=== PATIENT | female | born 2000 | race Caucasian/White ===

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

== ENCOUNTER 2023-07-24 01:51 | Emergency (ER) | payer BC, SELFPAY ==
--- NOTE | 2023-07-24 01:54 | ED.GENADUL_ITS ---
HPI General Mode of arrival: ambulatory . Date/Time Provider Initiated Documentation: 07/24/23 01:54 . Limitations to Documentation: no limitations . Information obtained by: patient . HPI Narrative: Patient presents to ED with complaint of headache now associated with vomiting. Patient reports headache started 2 days ago and was regular in nature. However, it has not gone away like they typically do. Headache has just become progressively worse. Today she has had nausea and vomiting. At this point she reports being unable to keep anything including water down. She denies any f ever, congestion, chest pain, shortness of breath, abdominal pain. She has a chronic smoker's cough which is unchanged and not any worse. Denies any neurologic complaints other than headache. Denies exposure to flu or COVID. Denies . Reports that she is generally healthy otherwise, only takes medication for her bipolar disorder. Related Data Home Medications Medication Instructions Recorded Confirmed hydroxyzine HCl 25 mg tablet 25 mg PO ONCE 07/24/23 07/24/23 melatonin 10 mg capsule 10 mg PO DAILY 07/24/23 07/24/23 olanzapine 20 mg tablet (Zyprexa) 20 mg PO DAILY 07/24/23 07/24/23 Allergies Allergy/AdvReac Type Severity Reaction Status Date / Time No Known Allergies Allergy Unverified 07/24/23 01:59 General KEITH: 3 Review of Systems Narrative: Per HPI PFSH All Active Problems (Updated 07/24/23 @ 03:04 by Kenji Tinoco MD) Vomiting (Acute) Headache (Acute) Medical History Bipolar II disorder Surgical History History of right knee surgery Social History Smoking/Tobacco Use Status: Current-Occasional Tobacco Type: cigarettes and e- cigarettes Smoking risk assessment performed?: Yes Alcohol Intake: current Alcohol Intake frequency: a few times a week Drug use: Occasionally Substance use type: marijuana Do you feel safe at home: Yes Do you feel safe in your relationship?: Yes Exam Narrative Exam Narrative: Const: WDWN female in NAD. HEENT: NC/AT. Normal facial exam. Eyes: Normal conjunctiva and sclera. PERRL and EOMI. Neck: Supple. Trachea midline. Lungs: Normal respiratory effort. Lungs are clear. Cor: RRR without murmur/gallop. Good radial pulses. GI: Soft. NT/ND. Neuro: A+O x 3. Normal speech, mentation, gait. Cranial nerves II - XII grossly intact. No gross motor or sensory deficit. Ext: No C/C/E. Skin: Warm and dry without rash. Medical Decision Making Patient presenting to ED with complaint of worsening headache over 2 days now associated with vomiting. She is not febrile and vital signs are normal. She looks well with normal neurologic exam and benign abdomen. Does get frequent headaches but typically not like this. No suspicion for SAH given gradual onset and worsening over days. Will plan IV with fluids and prochlorperazine and reevaluate. Patient's nausea completely resolved with prochlorperazine. Headache improved but not completely resolved. Will dose with ketorolac and discharged home so that she may sleep. Follow-up with primary care next week. Return precautions provided. Quality:SDOH Health Related Social Needs: No Data to Display Discharge Plan Disposition Patient Disposition: Home Condition: Improving Discharge Details Clinical Impression: Headache, Vomiting Primary Care Provider: Eleanor,Local ED Provider: Kenji Tinoco [facility] Meds and New Rx's Prescriptions: Continued olanzapine [Zyprexa] 20 mg tablet 20 mg PO DAILY hydroxyzine HCl 25 mg tablet 25 mg PO ONCE melatonin 10 mg capsule 10 mg PO DAILY Discharge Instructions Instructions: General Headache (ED) Additional Instructions: You were seen for headache and vomiting with reassuring vital signs and exam. Symptoms improved with fluids and medications. Hopefully, with sleep your headache will completely resolve. [facility] if you have continued problems. Return to ED if you develop confusion, lethargy, neurologic change, persistent vomiting, other concerns.
[2023-07-24 01:55] VITALS: BP 125/80; PULSE 91; RESP 18; TEMP 36.9; O2SAT 97
[2023-07-24] MEDS: Normal Saline 1,000 ML 1000 ML IV (02:12)
[2023-07-24] MEDS: Prochlorperazine 10 MG/2 ML VIAL IVP (02:12)
[2023-07-24] MEDS: Ketorolac 30 MG/ML VIAL IVP (03:10)
== END 2023-07-24 03:13 | disposition home or self-care (01) ==
PROVIDERS: Emergency Provider Emergency Medicine
DX: R51.9 Headache, unspecified (principal); R11.2 Nausea with vomiting, unspecified; F17.210 Nicotine dependence, cigarettes, uncomplicated; F17.290 Nicotine dependence, other tobacco product, uncomplicated
CPT/HCPCS: 96361; 96374; 99283; J0780; J1885